=== PATIENT | female | born 1970 ===

== ENCOUNTER 2018-03-28 19:10 | Emergency (ER) | payer MEDICAID, OTHER ==
[2018-03-28 19:10] VITALS: BMI 33.0
[2018-03-28 19:35] VITALS: O2SAT 100
--- NOTE | 2018-03-28 19:53 | C.PDOC ---
History Of Present Illness 47 F w/ PMHx of cholecystectomy & lipoma presents to ED following episode of intermittent "crushing" chest pain. Pt initially had chest pain earlier in AM that woke her up. Pain subsided approximately 30 minutes later but reappeared with less severity later in the afternoon. Pt was non exertional at time of chest pain, and patient states some SOB with pain. Presently patient does not have any chest pain. Pt complains of chronic pain in her left hip & and back that is managed by outpatient physician. <Jun Wood - Last Filed: 03/28/18 19:59> Onset/Duration Of Symptoms: Intermittent Episodes <Jun Wood - Last Filed: 03/28/18 19:59> <Gigi Malin - Last Filed: 03/28/18 21:38> Time Seen by Provider: 03/28/18 19:28 Chief Complaint (Nursing): Chest Pain Past Medical History Vital Signs: Last Vital Signs Temp 99 F 03/28/18 19:26 Pulse 89 03/28/18 19:26 Resp 20 03/28/18 19:26 BP 134/83 03/28/18 19:26 Pulse Ox 100 03/28/18 19:26 - Medical History PMH: Anemia, Gall Bladder Disease, Migraine Surgical History: Cholecystectomy - [facility] REPAIR OB LACERATION NEC (01/22/14) Family History: States: Unknown Family Hx - Social History Hx Tobacco Use: No Hx Alcohol Use: No Hx Substance Use: No - Immunization History Hx Tetanus Toxoid Vaccination: No Hx Influenza Vaccination: No Hx Pneumococcal Vaccination: No <Jun Wood - Last Filed: 03/28/18 19:59> Vital Signs: Last Vital Signs Temp 99 F 03/28/18 19:26 Pulse 89 03/28/18 19:26 Resp 20 03/28/18 19:26 BP 134/83 03/28/18 19:26 Pulse Ox 100 03/28/18 20:02 - [facility] Procedures REPAIR OB LACERATION NEC (01/22/14) <Gigi Malin - Last Filed: 03/28/18 21:38> Review Of Systems Constitutional: Negative for: Fever, Chills, Sweats Respiratory: Negative for: Cough, Shortness of Breath (No SOB at present time, SOB earlier w/ chest pain ) Gastrointestinal: Negative for: Nausea, Vomiting, Abdominal Pain Genitourinary: Negative for: Dysuria, Frequency Musculoskeletal: Negative for: Neck Pain <Jun Wood Last Filed: 03/28/18 19:59> Physical Exam - Physical Exam Appears: Well, Non-toxic, No Acute Distress Skin: Normal Color, Warm Chest: No Deformity, No Tenderness Cardiovascular: No Murmur, No JVD Respiratory: Normal Breath Sounds, No Decreased Breath Sounds, No Accessory Muscle Use Gastrointestinal/Abdominal: Bowel Sounds, Soft, Tenderness (perumbilical ) Extremity: No Tenderness, No Pedal Edema, No Calf Tenderness Neurological/Psych: Oriented x3 <Jun Wood - Last Filed: 03/28/18 19:59> ED Course And Treatment O2 Sat by Pulse Oximetry: 100 <Jun Wood Last Filed: 03/28/18 19:59> - Laboratory Results Result Diagrams: 03/28/18 19:54 03/28/18 19:54 Lab Interpretation: Normal (trop neg, UA neg,) Urine POC: Negative ECG: Interpreted By Or ECG Rhythm: Sinus Rhythm ECG Interpretation: Normal Rate From EC Pulse Ox Interpretation: Normal - Radiology CXR: Interpreted by Or CXR Interpretation: Yes: No Acute Disease, Other (no hiatal hernia visible) <Gigi Malin Last Filed: 03/28/18 21:38> Medical Decision Making Medical Decision Making: LOW susp of ACS/PE normal VS, no leg edema, trop neg, 100% o2Sat considering rapid weight gain and central obesity, consider GERD vs hiatal hernia opt f/u for upper endoscopy PPI, diet weight loss. <Gigi Malin E - Last Filed: 03/28/18 21:38> Disposition <Jun Wood - Last Filed: 03/28/18 19:59> Doctor Will See Patient In The: Office Counseled Patient/Family Regarding: Studies Performed, Diagnosis - Disposition Disposition Time: 21:37 <Gigi Malin E - Last Filed: 03/28/18 21:38> - Disposition Disposition: HOME/ ROUTINE Condition: GOOD Forms: [employer] (Portuguese) - Clinical Impression Clinical Impression: Chest discomfort
[2018-03-28 20:00] LABS: BASO % 0.7 % (0.0-2.0); EOS # 0.1 K/uL (0.0-0.7); EOS % 1.9 % (0.0-4.0); HEMOGLOBIN 13.2 g/dL (11.0-16.0); LYMPH # 1.7 K/uL (1.0-4.3); LYMPH % 23.5 % (20.0-40.0); MEAN CELL VOLUME 88.6 fL (81.0-99.0); MEAN CORPUSCULAR HEMOGLOBIN 29.8 pg (27.0-31.0); MEAN CORPUSCULAR HGB CONC 33.7 g/dL (33.0-37.0); MEAN PLATELET VOLUME 10.9 fL (7.2-11.7); MONO # 0.6 K/uL (0.0-0.8); MONO % 7.8 % (0.0-10.0); NEUT # 4.9 K/uL (1.8-7.0); NEUT % 66.1 % (50.0-75.0); RBC 4.43 Mil/uL (3.80-5.20); RED CELL DISTRIBUTION WIDTH 13.3 % (11.5-14.5); WHITE BLOOD COUNT 7.3 K/uL (4.8-10.8)
[2018-03-28 20:08] LABS: PROTHROMBIN TIME 10.5 SECONDS (9.7-12.2)
[2018-03-28 20:54] LABS: CK-MB 0.54 ng/mL (0.0-3.38)
[2018-03-28 20:56] LABS: HCG,QUALITATIVE URINE NEGATIVE (NEGATIVE); SQUAMOUS EPITHIAL 1 /hpf (0-5); URINE BACTERIA RARE (<OCC); URINE BILIRUBIN NEGATIVE (NEGATIVE); URINE BLOOD NEGATIVE (NEGATIVE); URINE CLARITY Clear (Clear); URINE COLOR Straw (YELLOW); URINE GLUCOSE (UA) NORMAL (Normal); URINE LEUKOCYTE ESTERASE NEG Leu/uL (Negative); URINE PROTEIN NEGATIVE (NEGATIVE); URINE UROBILINOGEN NORMAL mg/dL (0.2-1.0)
[2018-03-28 20:59] LABS: ALBUMIN 4.2 g/dL (3.5-5.0); ALT/SGPT 49 U/L (9-52); AST/SGOT 39 U/L (14-36); BLOOD UREA NITROGEN 12 mg/dL (7-17); CALCIUM 8.9 mg/dl (8.6-10.4); GFR NON-AFRICAN AMERICAN > 60
[2018-03-28 21:06] LABS: ALB/GLOB RATIO 1.3 (1.0-2.1)
[2018-03-28 22:08] VITALS: BP 131/96; PULSE 88; RESP 16; TEMP 98.6
--- NOTE | 2018-03-29 08:48 | RAD ---
Date of service: 03/28/2018 HISTORY: chest pain COMPARISON: No prior. TECHNIQUE: Chest PA and lateral FINDINGS: LUNGS: No active pulmonary disease. PLEURA: No significant pleural effusion identified. No pneumothorax apparent. CARDIOVASCULAR: No aortic atherosclerotic calcification present. Normal cardiac size. No pulmonary vascular congestion. OSSEOUS STRUCTURES: No significant abnormalities. VISUALIZED UPPER ABDOMEN: Normal. OTHER FINDINGS: None. IMPRESSION: No evidence of consolidation pleural effusion or pneumothorax.
--- NOTE | 2018-03-29 23:39 | CARD ---
APPROVED REPORT Date of service: 03/28/2018 EKG Measurement Heart [id number] <Conclusion> Normal sinus rhythm Cannot rule out Anterior infarct, age undetermined Abnormal ECG
== END 2018-03-28 22:08 | disposition home or self-care (01) ==
LOC: C.ER 19:10
DX: R07.89 Other chest pain (principal)

== ENCOUNTER 2018-08-16 08:16 | Day surgery (SDC) | payer MEDICAID ==
[2018-08-08 10:57] VITALS: BMI 34.5
[~2018-08-16 08:16] MED LIST: Acetaminophen-Codeine 300/30 mg Tab PO PRN
[2018-08-16] MEDS ORDERED: Dextrose 5%/0.45% NS 1,000 ML IV SCH (08:30)
[2018-08-16] MEDS ORDERED: Clindamycin 600mg/50ml NS 600 MG/50 ML BAG IVPB ONE (09:42)
[2018-08-16] MEDS ORDERED: Dexamethasone 4 mg/1 ml ONE (09:42)
[2018-08-16] MEDS ORDERED: Propofol 10 mg/ml Inj (20 ML) ONE ×2 (11:23→12:42)
[2018-08-16] MEDS ORDERED: Succinylcholine Chloride 20 mg/ml Syr (5 ml) IV ONE (11:24)
[2018-08-16] MEDS ORDERED: Midazolam 2 MG/2 ML VIAL ONE (11:25)
[2018-08-16] MEDS ORDERED: HYDROmorphone 0.5 mg/0.5 ml ISec IVP PRN ×2 (13:34→13:47)
[2018-08-16 14:52] VITALS: TEMP 98
[2018-08-16 15:00] VITALS: BP 127/73; PULSE 93; RESP 18; O2SAT 100
--- NOTE | 2018-08-16 19:39 | OP ---
PROCEDURE DATE: 08/16/2018 PREOPERATIVE DIAGNOSIS: Vocal cord lesion, bilateral. POSTOPERATIVE DIAGNOSIS: Vocal cord lesion, bilateral. PROCEDURE: Microdirect laryngoscopy with focal biopsy, bilateral. SIGNIFICANT FINDINGS: Mildly irregular border of the vocal cords. DESCRIPTION OF PROCEDURE: The patient was brought into room, placed in supine position. Anesthesia was initiated through an ET tube. Shoulder roll was placed and neck extended. The patient was draped in usual manner. Direct laryngoscope was inserted into oral cavity, passed through the oropharynx, hypopharynx. Base of tongue, vallecula, epiglottis, AE folds, false cords, true cords, piriform sinuses, and arytenoids were brought into view as well as the pharyngeal cason. The direct laryngoscope was suspended on the [place] under cutting machine operator the usual manner while viewing the vocal cords. Microscope was brought into position to view the vocal cords and mild irregularity of the vocal cords were noted. Biopsies were taken of both sides. Bleeding was controlled using cold water irrigation. The microscope was taken out of position. The direct laryngoscope was taken off suspension and removed. The tooth guard over the upper teeth in order to protect them and was removed. The patient was taken off anesthesia and taken to recovery room in stable manner. Jonathan Max MD
== END 2018-08-16 15:31 | disposition home or self-care (01) ==
LOC: C.SDS 08:16
PROVIDERS: ATTEND Otolaryngology
DX: J38.3 Other diseases of vocal cords (principal)
CPT/HCPCS: 31536; 88305; J1170; J2001; J2250; J2405; J2704; J3010; J7040